=== PATIENT | female | born 1970 | race Asian ===

== ENCOUNTER 2024-11-05 10:26 | Emergency (ER) | payer BC, SELFPAY ==
[2024-11-05 10:29] VITALS: BMI 20.9
[2024-11-05 10:53] VITALS: BP 116/82; PULSE 102; RESP 18; TEMP 37.3; O2SAT 97
--- NOTE | 2024-11-05 11:22 | PD.EDRME ---
Rapid Medical Screening Exam E Arrival date/time: 11/05/24 10:26 This is a 54-year-old female that comes into the emergency room with multiple complaints patient was treated for cellulitis Starting September 15, 2024. The cellulitis is mostly to the right side of posterior upper thigh right underneath the buttock area. It is also on the left side but not as bad per patient patient states that she was initially placed on Keflex. She reports that it got better but she still had the cellulitis. Patient was then put on clindamycin. patient reports that again it got better but did not resolve. Patient now is on Bactrim. Patient still has medications to finish. Patient noted that the right side of her right posterior upper thigh is feeling hotter to touch. She states she has been putting triple antibiotic ointment on it the last few days. Patient also notices that it is a little bit more red. Patient also complains of right hand numbness. Patient has no focal deficits. Patient has no other complaints of weakness. Patient has a follow-up appointment with her primary doctor 11/10/24. Patient frustrated because it is not getting better And now has a low-grade temp. Patient has no past medical history that she reports I have greeted and performed a focused initial assessment of this patient. Initial appropriate labs ordered at this time. A comprehensive ED assessment and evaluation of the patient and analysis of all test and completion of medical decision making process will be conducted by additional ED provider. Chief Complaint: Hand/Wrist Problems Time Seen by Provider: 11/05/24 10:56 Vital signs: Vital Signs Temperature 99.1 F 11/05/24 10:53 Pulse Rate 102 H 11/05/24 10:53 Respiratory Rate 18 11/05/24 10:53 Blood Pressure 116/82 11/05/24 10:53 Pulse Oximetry (%) 97 11/05/24 10:53 Oxygen Delivery Method Room Air 11/05/24 10:53
[2024-11-05] MEDS: ACETAMINOPHEN 500 MG TABLET 1000 MG PO (11:31)
[2024-11-05 12:02] LABS: Lactate (Lactic Acid) 1.3 mMol/L (0.4-2.0)
[2024-11-05 12:10] LABS: Basophils # (Auto) 0.0 Thou/mm3 (0.0-0.2); Basophils % (Auto) 0 % (0-2.5); Eosinophils # (Auto) 0.0 Thou/mm3 (0.0-0.5); Eosinophils % (Auto) 0 % (0-10); Hematocrit 40.7 % (36.0-46.0); Hemoglobin 13.3 g/dL (12.0-16.0); Immature Granulocytes Auto 0.01 Thou/mm3 (0.00-0.00); Lymphocytes # (Auto) 0.9 Thou/mm3 (1.0-4.8); Lymphocytes % (Auto) 20 % (10-50); Mean Corpuscular HGB Conc 32.7 g/dl (31.0-37.0); Mean Corpuscular Hemoglobin 30.6 pg (25.0-35.0); Mean Corpuscular Volume 94 fL (80-100); Monocytes # (Auto) 0.2 Thou/mm3 (0.0-0.8); Monocytes % (Auto) 4 % (0-12); Neutrophils # (Auto) 3.6 Thou/mm3 (1.8-7.7); Neutrophils % (Auto) 76 % (37-80); Nucleated Red Blood Cell # 0.00 Thou/mm3 (0.00-0.00); Nucleated Red Blood Cell % 0 /100 WBC (0); Platelet Count 214 Thou/mm3 (140-440); RDW Standard Deviation 42.4 fL (36.4-46.3); Red Blood Count 4.35 Miln/mm3 (4.00-5.20); White Blood Count 4.8 Thou/mm3 (3.6-11.0)
[2024-11-05 12:47] LABS: Alanine Aminotransferase 11 U/L (10-49); Albumin, Serum 4.8 gm/dL (3.5-5.0); Albumin/Globulin Ratio 1.8 (1.2-2.2); Alkaline Phosphatase 55 U/L (46-116); Anion Gap 11 (7-16); Aspartate Amino Transferase 18 U/L (0-34); BUN/Creatinine Ratio 8 Ratio (12-20); Bilirubin,Total 0.4 mg/dL (0.3-1.2); Blood Urea Nitrogen 8 mg/dL (9-23); C-Reactive Protein < 0.5 mg/dL (0.0-0.9); Calcium 10.0 mg/dL (8.3-10.6); Calcium (Corrected) 10.0 mg/dL (8.5-10.1); Carbon Dioxide 26.1 mMol/L (20.0-31.0); Chloride 101 mMol/L (98-107); Creatinine (Component) 1.0 mg/dL (0.6-1.3); Estimated Creatinine Clearance 61.3 mL/min (>60); Globulin 2.7 gm/dL (2.3-3.5); Glucose 108 mg/dL (74-106); Osmolality,Calculated 274 (275-295); Potassium 3.8 mMol/L (3.4-5.1); Procalcitonin < 0.04 ng/ml (0.0-0.49); Sodium 138 mMol/L (136-145); Total Protein 7.5 gm/dL (5.7-8.2); eGFR > 60 See Note
--- NOTE | 2024-11-05 12:49 | PD.EDADULT ---
ED General RME/HPI General Chief complaint: Hand/Wrist Problems Stated complaint: RIGHT HAND NUMB SINCE 0900 TODAY Time Seen by Provider: 11/05/24 10:56 Arrival date/time: 11/05/24 10:26 CC: Redness tenderness to the inner thighs adjacent to the labia. Onset August, diagnosed as cellulitis, has been on a course of Keflex clindamycin and Bactrim. No prior history of similar events. Denies any painful urination bloody urination vaginal irritation or inflammation diarrhea constipation or buttock abscesses. Patient had a surgery to her left anterior thigh as an infant and does not know what it was for. Patient is awake alert oriented not in any acute distress. Patient states sites improved but not clear completely after each round of antibiotics. RME / HPI RME / HPI narrative: 11/05/24 10:26 This is a 54-year-old female that comes into the emergency room with multiple complaints patient was treated for cellulitis Starting September 15, 2024. The cellulitis is mostly to the right side of posterior upper thigh right underneath the buttock area. It is also on the left side but not as bad per patient patient states that she was initially placed on Keflex. She reports that it got better but she still had the cellulitis. Patient was then put on clindamycin. patient reports that again it got better but did not resolve. Patient now is on Bactrim. Patient still has medications to finish. Patient noted that the right side of her right posterior upper thigh is feeling hotter to touch. She states she has been putting triple antibiotic ointment on it the last few days. Patient also notices that it is a little bit more red. Patient also complains of right hand numbness. Patient has no focal deficits. Patient has no other complaints of weakness. Patient has a follow-up appointment with her primary doctor 11/10/24. Patient frustrated because it is not getting better And now has a low-grade temp. Patient has no past medical history that she reports I have greeted and performed a focused initial assessment of this patient. Initial appropriate labs ordered at this time. A comprehensive ED assessment and evaluation of the patient and analysis of all test and completion of medical decision making process will be conducted by additional ED provider. Related Data Allergies Allergy/AdvReac Type Severity Reaction Status Date / Time No Known Allergies Allergy Verified 11/05/24 10:31 Review of Systems Review of Systems Narrative Review of Systems: GEN: No fever, no chills, no weight loss EYES: No discharge, no visual changes, no pain HEENT: No ear pain, no congestion, no sore throat PULM: No shortness of breath, no cough, no congestion CV: No chest pain, no dyspnea on exertion, no palpitations GI: No nausea, no vomiting, no diarrhea, no pain, no constipation : No frequency, no urgency, no dysuria MUSC/SKEL: No joint pain, no back pain SKIN: + rash PSYCH: No hallucinations, no depression HEME/LYMPH: No easy bleeding or bruising tendencies NEURO: No weakness, no headache Past Medical History Social History SMOKING STATUS: Never smoker ED Exam Narrative Physical exam: [General: Not in any acute distress Head normocephalic HEENT: Within acceptable limits Neck is supple nontender Chest equal chest rise nontender to palpation Respiratory: Clear to auscultation no wheezes crackles or rubs CV: Rate rhythm is regular no murmurs rubs or clicks Abdomen i soft nontender no masses positive bowel sounds all 4 quadrants Back: No CVA tenderness no spinous process tenderness from cervical spine thoracic and lumbar spine Skin: Erythematous patches of bilateral upper inner thighs adjacent to the vagina, no open lesions firm to touch nontender no exudate or bleeding. No streaking. Soft irregular pattern with poorly defined borders. Fully healed lineal surgical incision line to the left anterior upper thigh well-healed. Otherwise skin is intact no petechiae rash induration ulceration or crepitus Extremities: Moving all extremity against resistance cap refill less than 2 seconds neurosensory intact Neuro: Awake alert oriented x3 Glascow coma 15 no focal deficits] Course Quality Measures none Orders Category Date Time Status CT Screening NOW Care 11/05/24 12:[address] pelvis w con Stat Exams 11/05/24 12:54 Completed Blood Culture (Lab) Stat Lab 11/05/24 11:40 Received CBC Stat Lab 11/05/24 11:49 Completed CRP [C-Reactive Protein] Stat Lab 11/05/24 11:49 Completed Comprehensive Metabolic Panel Stat Lab 11/05/24 11:49 Completed Lactate (Lactic Acid) Stat Lab 11/05/24 11:49 Completed Procalcitonin Stat Lab 11/05/24 11:49 Completed Acetaminophen Tab [Tylenol ES Tab] Med 11/05/24 11:27 Discontinued 1,000 mg PO X1 ONE cefTRIAXone/D5w 1gm IV premix [Rocephin/D5w 1gm IV Med 11/05/24 15:10 Active premix] 1 gm in 50 ml IV X1 Vital Signs Vital signs: Vital Signs Temperature 99.1 F 11/05/24 10:53 Pulse Rate 102 H 11/05/24 10:53 Respiratory Rate 18 11/05/24 10:53 Blood Pressure 116/82 11/05/24 10:53 Pulse Oximetry (%) 97 11/05/24 10:53 Oxygen Delivery Method Room Air 11/05/24 10:53 Discharge Plan Plan Patient Disposition: HOME (Self Care) Patient condition on transfer: Stable Prescriptions/Referrals Referrals: Socorro Goins MD [Primary Care Provider, Family Practice] - In 1 week Problem List Clinical Impression: Cellulitis of left buttock Patient/Caregiver Discharge Instructions Education Materials: Discharge Instructions for Cellulitis Additional Instructions: Take the medication until gone, follow-up with your primary care doctor as stated. Print Language: Amharic Stand Alone Forms: [employer] Info., Work/School Release, Patient Portal Info Letter PA/MICHAEL Supervising Physician PA/ACTIVITY LEADER Supervising Physician: Ziggy Palumbo ENP [facility] Clinical Information Provided by patient Medical Records Reviewed [facility] Meds/Rx Considered, not Ordered None Labs/Rad/Tests considered, not Ordered None Chronic Illness/Social Conditions which may negatively complicate care or outcome(s)-explain: None or not applicable EKG EKG not done Lab Interpretation Lab(s) interpretation(s): CBC shows no acute leukocytosis anemia thrombocytopenia CMP shows no other significant lecture light imbalances glucose is mildly elevated at 108. No other electrolyte imbalances renal impairment transaminitis or T. bili elevation Procalcitonin is unremarkable. Imaging Provider imaging interpretation(s): CT of the pelvis with IV contrast shows no abscess or invasive cellulitis. Radiology reports / interpretation(s): I suspect this is all superficial in nature although I am not understanding why it is not responding to at least 3 different antibiotics. Patient will be discharged home she has a follow-up with her PCP in 6 days. I find this to be acceptable, patient can be follow-up outpatient wound management and/or new recourse of antibiotics or referral to ID Medication Administration(s) none Medication Administration History Ceftriaxone Sodium/Dextrose (Rocephin/D5w 1gm Iv Premix) 1 gm in 50 mls @ 100 mls/hr IV X1 ONE Stop: 11/05/24 15:39 Discontinued Medications Acetaminophen (Acetaminophen 500 Mg Tablet) 1,000 mg PO X1 ONE Stop: 11/05/24 11:28 Last Admin: 11/05/24 11:31 Dose: 1,000 mg Documented By: Diagnosis Differential diagnosis: Cellulitis, buttock abscess Dispositon Disposition: Discharge Home
--- NOTE | 2024-11-05 12:54 | XR_ITS ---
Examination: Examination: CT pelvis without intravenous contrast. 2-D sagittal and coronal reconstructions. Date and time of exam:November 05, 2024, 1439 hrs. Indications: Redness involving the right side today, uterine cancer diagnosis CTDI: vol (mGy) :14.2 DLP: (mGycm) : 384 Technique: Multiple 3 mm axial sections of the pelvis have been obtained with the 64 slice high resolution scanner. 2-D sagittal and coronal reconstructions. Low dose protocols were performed. One or more of the following dose reduction techniques were used; automated exposure control, adjustment of the mA and/or KV according to patient size, use of iterative reconstruction technique. Findings: Normal appendix. No bowel obstruction. No diverticulitis. Absent uterus. Bladder intact No cellulitis pattern or abscess in the soft tissue or thigh region Impression : No pelvic abscess
[2024-11-05 13:14] VITALS: BP 111/71; PULSE 61; RESP 17; O2SAT 99
[2024-11-05 16:13] VITALS: BP 114/58; PULSE 64; RESP 16; TEMP 36.9; O2SAT 98
[2024-11-05] MEDS: cefTRIAXone/D5w 1gm IV premix 1 GM/50 ML BAG IV (17:29)
== END 2024-11-05 18:41 | disposition home or self-care (01) ==
PROVIDERS: Nurse Practitioner Family; Emergency Provider Emergency Medicine; PCP Family Medicine
DX: L03.317 Cellulitis of buttock (principal)
CPT/HCPCS: 36415; 72193; 80053; 83605; 84145; 85025; 86140; 87040; 96365; 96366; 99283; A4649; J0696; Q9967; A9270

== ENCOUNTER → 2024-11-20 | Outpatient (CLI) | payer BC, SELFPAY ==
[2024-11-20 11:41] LABS: INR 0.9 (0.9-1.3); Partial Thromboplastin Time 27.9 Seconds (22.0-36.0); Prothrombin Time 10.3 Seconds (9.0-12.2)
== END | disposition home or self-care (01) ==
LOC: COPL 09:51
PROVIDERS: PCP Family Medicine; Referring Provider Surgery; Visit Provider Surgery
DX: R23.3 Spontaneous ecchymoses (principal); R79.1 Abnormal coagulation profile
CPT/HCPCS: 36415; 85610; 85730

== ENCOUNTER → 2024-11-20 | Outpatient (CLI) | payer BC, SELFPAY | END | disposition home or self-care (01) | LOC: SWHD 08:11 | PROVIDERS: PCP Registered Nurse; Referring Provider Registered Nurse; Visit Provider Surgery | DX: S31.829D Unspecified open wound of left buttock, subsequent encounter (principal); S31.819D Unspecified open wound of right buttock, subsequent encounter; X58.XXXD Exposure to other specified factors, subsequent encounter; E78.5 Hyperlipidemia, unspecified; Z85.89 Personal history of malignant neoplasm of other organs and systems; Z90.710 Acquired absence of both cervix and uterus | CPT/HCPCS: 97597; 97598; A9270 ==

== ENCOUNTER → 2024-11-27 | Outpatient (CLI) | payer BC, SELFPAY | END | disposition home or self-care (01) | LOC: SWHD 08:05 | PROVIDERS: PCP Registered Nurse; Referring Provider Registered Nurse; Visit Provider Student in an Organized Health Care Education/Training Program | DX: S31.829D Unspecified open wound of left buttock, subsequent encounter (principal); S31.819D Unspecified open wound of right buttock, subsequent encounter; X58.XXXD Exposure to other specified factors, subsequent encounter; E78.5 Hyperlipidemia, unspecified; Z85.89 Personal history of malignant neoplasm of other organs and systems; Z90.710 Acquired absence of both cervix and uterus | CPT/HCPCS: 99213; A9270; G0463 ==

== ENCOUNTER → 2024-12-04 | Outpatient (CLI) | payer BC, SELFPAY | END | disposition home or self-care (01) | LOC: SWHD 08:14 | PROVIDERS: PCP Family Medicine; Referring Provider Family Medicine; Visit Provider Student in an Organized Health Care Education/Training Program | DX: S31.819D Unspecified open wound of right buttock, subsequent encounter (principal); S31.829D Unspecified open wound of left buttock, subsequent encounter; X58.XXXD Exposure to other specified factors, subsequent encounter; Z85.89 Personal history of malignant neoplasm of other organs and systems; E78.5 Hyperlipidemia, unspecified; Z90.710 Acquired absence of both cervix and uterus | CPT/HCPCS: 99212; A9270; G0463 ==

== ENCOUNTER → 2024-12-11 | Outpatient (CLI) | payer BC, SELFPAY | END | disposition home or self-care (01) | LOC: SWHD 08:11 | PROVIDERS: PCP Family Medicine; Referring Provider Family Medicine; Visit Provider Surgery | DX: S31.819D Unspecified open wound of right buttock, subsequent encounter (principal); S31.829D Unspecified open wound of left buttock, subsequent encounter; X58.XXXD Exposure to other specified factors, subsequent encounter; Z85.89 Personal history of malignant neoplasm of other organs and systems; E78.5 Hyperlipidemia, unspecified; Z90.710 Acquired absence of both cervix and uterus | CPT/HCPCS: 99213; G0463 ==